=== PATIENT | male | born 1960 | race Caucasian/White ===

== ENCOUNTER 2020-10-13 20:32 | Emergency (ER) | payer MEDICAID ==
[~2020-10-13] VITALS: Ht 175.3 cm; Wt 94.8 kg
[2020-10-13 20:46] VITALS: BP 166/100
[2020-10-13 21:11] LABS: CLARITY,URINE CLEAR (Clear); COLOR,URINE YELLOW (Yellow); GLUCOSE, URINE 250 mg/dl (Neg); KETONES,URINE NEGATIVE (Neg); LEUKOCYTE ESTERASE ,URINE TRACE (Neg); NITRITES, URINE NEGATIVE (Neg); OCCULT BLOOD,URINE LARGE (Neg); PH,URINE 5.5 (4.8-8.0); PROTEIN,URINE NEGATIVE (Neg); UROBILINOGEN,URINE 0.2 E.U/dL (0.2-1.0)
[2020-10-13 21:17] LABS: BACTERIA,URINE FEW /HPF (Neg); SQUAMOUS EPITHELIAL CELL,UR FEW /LPF (FEW); UA COLLECTION TYPE CLN CATCH MIDSTREAM; WBC,URINE 0-4 /HPF (0-4)
[2020-10-13] MEDS ORDERED: LIDOcaine 2% 10ml TOPICAL JELLY (Urojet) MM ONE (22:10)
[2020-10-13 22:40] LABS: ALBUMIN 4.2 G/DL (3.4-5.0); ANION GAP 13 (8-16); BLOOD UREA NITROGEN 13 MG/DL (7-18); BUN/CREATININE RATIO 10.8 (5.4-32.0); CALCIUM 9.4 MG/DL (8.5-10.1); CHLORIDE 105 MMOL/L (99-107); GLUCOSE 143 MG/DL (70-104); POTASSIUM 3.5 MMOL/L (3.5-5.1); SODIUM 143 MMOL/L (135-145); TOTAL CARBON DIOXIDE 25.3 MMOL/L (24-32); eGFR 62 ML/MIN
[2020-10-13] MEDS ORDERED: FLO0.4C PO (23:08)
== END 2020-10-13 23:32 | disposition home or self-care (01) ==
LOC: ER 20:32
DX: R33.9 Retention of urine, unspecified (principal); N20.0 Calculus of kidney; E11.9 Type 2 diabetes mellitus without complications; Z87.442 Personal history of urinary calculi; Z72.89 Other problems related to lifestyle; Z98.890 Other specified postprocedural states
CPT/HCPCS: 36415; 51702; 76705; 80048; 81001; 87088; 99284

== ENCOUNTER 2020-10-14 13:28 | Emergency (ER) | payer MEDICAID ==
[~2020-10-14] VITALS: Ht 175.3 cm; Wt 98.1 kg
[~2020-10-14 13:28] MED LIST: FLO0.4C PO
[2020-10-14 14:45] VITALS: BP 173/101
[2020-10-14 16:42] LABS: ALBUMIN 4.3 G/DL (3.4-5.0); ANION GAP 13 (8-16); BLOOD UREA NITROGEN 14 MG/DL (7-18); BUN/CREATININE RATIO 11.4 (5.4-32.0); CALCIUM 9.6 MG/DL (8.5-10.1); CHLORIDE 104 MMOL/L (99-107); CREATININE 1.23 MG/DL (0.60-1.10); GLUCOSE 135 MG/DL (70-104); POTASSIUM 4.1 MMOL/L (3.5-5.1); SODIUM 144 MMOL/L (135-145); TOTAL CARBON DIOXIDE 27.3 MMOL/L (24-32); eGFR 60 ML/MIN
[2020-10-14 16:48] LABS: BASOPHILS % (AUTO) 0.5 % (0-1); EOSINOPHILS % (AUTO) 0.4 % (0-6); HEMATOCRIT 45.2 % (42.0-52.0); HEMOGLOBIN 15.2 g/dl (14.0-17.9); LYMPHOCYTES # (AUTO) 1.3 X10'3 (1.1-4.8); LYMPHOCYTES % (AUTO) 14.7 % (21-51); MEAN CORPUSCULAR HEMOGLOBIN 31.6 PG (27.0-31.0); MEAN CORPUSCULAR HGB CONC 33.5 g/dL (33.0-36.5); MEAN CORPUSCULAR VOLUME 94.4 FL (78-98); MEAN PLATELET VOLUME 9.9 FL (7.4-10.4); MONOCYTES # (AUTO) 0.5 X10'3 (0-0.9); MONOCYTES % (AUTO) 5.9 % (2-12); NEUTROPHILS # (AUTO) 7.1 X10'3 (1.8-7.7); NEUTROPHILS % (AUTO) 78.5 % (42-75); PLATELET COUNT 217 X10'3 (140-440); RED BLOOD COUNT 4.79 X10'6 (4.70-6.10); RED CELL DISTRIBUTION WIDTH 13.9 % (11.5-14.5)
== END 2020-10-14 20:13 | disposition home or self-care (01) ==
LOC: ER 13:29
DX: N21.0 Calculus in bladder (principal); R10.84 Generalized abdominal pain; E11.9 Type 2 diabetes mellitus without complications; Z87.442 Personal history of urinary calculi; Z72.89 Other problems related to lifestyle; Z98.890 Other specified postprocedural states; Z79.899 Other long term (current) drug therapy
CPT/HCPCS: 36415; 74176; 76705; 80048; 85025; 99285

== ENCOUNTER 2020-10-18 15:09 | Inpatient (IN) | payer MEDICAID ==
[~2020-10-18] VITALS: Ht 175.3 cm; Wt 97.3 kg
[2020-10-18] MEDS ORDERED: LIDOcaine 2% 10ml TOPICAL JELLY (Urojet) TP ONE (15:35)
[2020-10-18 17:32] LABS: BASOPHILS % (AUTO) 0.4 % (0-1); EOSINOPHILS # (AUTO) 0.1 X10'3 (0-0.9); HEMATOCRIT 43.3 % (42.0-52.0); HEMOGLOBIN 14.3 g/dl (14.0-17.9); LYMPHOCYTES # (AUTO) 1.2 X10'3 (1.1-4.8); LYMPHOCYTES % (AUTO) 13.3 % (21-51); MEAN CORPUSCULAR HEMOGLOBIN 31.2 PG (27.0-31.0); MEAN CORPUSCULAR HGB CONC 33.1 g/dL (33.0-36.5); MEAN CORPUSCULAR VOLUME 94.5 FL (78-98); MEAN PLATELET VOLUME 10.3 FL (7.4-10.4); MONOCYTES # (AUTO) 0.6 X10'3 (0-0.9); MONOCYTES % (AUTO) 7.4 % (2-12); NEUTROPHILS # (AUTO) 6.8 X10'3 (1.8-7.7); NEUTROPHILS % (AUTO) 77.9 % (42-75); PLATELET COUNT 174 X10'3 (140-440); RED BLOOD COUNT 4.58 X10'6 (4.70-6.10); RED CELL DISTRIBUTION WIDTH 13.7 % (11.5-14.5); WHITE BLOOD COUNT 8.7 X10'3 (4.5-11.0)
[2020-10-18 17:46] LABS: ALANINE AMINOTRANSFERASE 78 U/L (12-78); ALBUMIN 4.1 G/DL (3.4-5.0); ALBUMIN/GLOBULIN RATIO 1.1 (1.1-1.5); ALKALINE PHOSPHATASE 73 IU/L (46-116); ANION GAP 12 (8-16); ASPARTATE AMINO TRANSFERASE 64 U/L (10-37); BILIRUBIN,TOTAL 0.5 MG/DL (0.1-1.0); BLOOD UREA NITROGEN 13 MG/DL (7-18); BUN/CREATININE RATIO 11.9 (5.4-32.0); CALCIUM 9.4 MG/DL (8.5-10.1); CHLORIDE 104 MMOL/L (99-107); CREATININE 1.09 MG/DL (0.60-1.10); GLUCOSE 126 MG/DL (70-104); SODIUM 143 MMOL/L (135-145); TOTAL CARBON DIOXIDE 27.3 MMOL/L (24-32); TOTAL PROTEIN 7.9 G/DL (6.4-8.2); eGFR 69 ML/MIN
[2020-10-18] MEDS ORDERED: ibuprofen tablet 400 MG TABLET PO ONE (18:05)
[2020-10-18] MEDS ORDERED: acetaminophen 325mg tablet PO ONE (18:05)
[2020-10-18] MEDS ORDERED: LIDOcaine 2% 10ml TOPICAL JELLY (Urojet) MM ONE (20:45)
[2020-10-18] MEDS ORDERED: temazepam 15mg capsule PO PRN (21:00)
[2020-10-18] MEDS ORDERED: magnesium 2GM in 50ml NS 50 ML IV PRN (23:25)
[2020-10-18] MEDS ORDERED: potassium Cl 20 mEq SR tablet PO PRN ×2 (23:25)
[2020-10-18] MEDS ORDERED: dextrose 50%-water 50ml dispensing syringe IV PRN ×2 (23:25)
[2020-10-18] MEDS ORDERED: potassium Cl 40MEQ/1/2NS 520ml 520 ML IV PRN ×2 (23:25)
[2020-10-18] MEDS ORDERED: HYDROmorphone inj. 0.5 MG/0.5 ML DISP.SYRIN IV PRN (23:25)
[2020-10-18] MEDS ORDERED: magnesium Cl slow-release 64mg tablet PO PRN (23:25)
[2020-10-18] MEDS ORDERED: HYDROcodone/acetaminophen 10/325mg tab PO PRN (23:25)
[2020-10-18] MEDS ORDERED: ondansetron/PF 4mg/2ml inj IV PRN (23:25)
[2020-10-18] MEDS ORDERED: glucagon, human recombinant 1mg kit SUBCUT PRN (23:25)
[2020-10-18] MEDS ORDERED: MESSAGE TO PHARMACY PO ONE (23:25)
[2020-10-18] MEDS ORDERED: morphine 2 MG/ML inj. syringe IV PRN ×2 (23:25)
[2020-10-18] MEDS ORDERED: magnesium 4gm in 100ml NS 100 ML IV PRN (23:25)
[2020-10-18] MEDS ORDERED: HYDROcodone/acetaminophen 5mg/325mg tablet PO PRN (23:25)
[2020-10-18] MEDS ORDERED: dextrose ORAL solution 15 GM/59 ML bottle PO PRN ×2 (23:25)
[2020-10-18] MEDS ORDERED: acetaminophen 325mg tablet PO PRN ×2 (23:25)
[2020-10-18 23:40] LABS: HEMOGLOBIN A1C 6.8 % (4.5-6.2)
[2020-10-19] VITALS (16 sets, daily range): BP systolic 120–155; BP diastolic 54–88
[2020-10-19] MEDS: ciprofloxacin lact 400MG/200ML 200 ML IV SCH ×3 (01:02→21:42)
[2020-10-19] MEDS: normal saline 1000ml 1,000 ML IV SCH ×3 (01:02→16:40)
[2020-10-19] MEDS: lisinopril 10 MG tablet PO SCH ×2 (01:34→08:24)
[2020-10-19] MEDS: amLODIPine 5mg tablet PO SCH ×2 (01:34→08:25)
[2020-10-19] MEDS ORDERED: LORA10TA7 PO (07:52)
[2020-10-19] MEDS ORDERED: OLAN20TA3 PO (07:52)
[2020-10-19] MEDS ORDERED: ALLO100T PO (07:52)
[2020-10-19] MEDS ORDERED: HYDR25TA4 PO (07:52)
[2020-10-19] MEDS ORDERED: MELO-102 PO (07:52)
[2020-10-19] MEDS ORDERED: INSU100I31 SQ (07:52)
[2020-10-19] MEDS: K and/or MAG REPLACEMENT MC SCH ×2 (08:00→20:00)
[2020-10-19] MEDS: heparin, porcine 5000 units/ml vial SQ SCH ×2 (08:00→19:49)
[2020-10-19] MEDS: docusate sod 100mg capsule PO SCH ×2 (08:25→19:49)
[2020-10-19 08:32] LABS: BASOPHILS % (AUTO) 0.3 % (0-1); EOSINOPHILS # (AUTO) 0.2 X10'3 (0-0.9); EOSINOPHILS % (AUTO) 1.9 % (0-6); HEMATOCRIT 43.1 % (42.0-52.0); HEMOGLOBIN 14.3 g/dl (14.0-17.9); LYMPHOCYTES # (AUTO) 1.4 X10'3 (1.1-4.8); LYMPHOCYTES % (AUTO) 15.3 % (21-51); MEAN CORPUSCULAR HEMOGLOBIN 31.4 PG (27.0-31.0); MEAN CORPUSCULAR HGB CONC 33.1 g/dL (33.0-36.5); MEAN PLATELET VOLUME 10.2 FL (7.4-10.4); MONOCYTES # (AUTO) 0.9 X10'3 (0-0.9); MONOCYTES % (AUTO) 9.7 % (2-12); NEUTROPHILS # (AUTO) 6.8 X10'3 (1.8-7.7); NEUTROPHILS % (AUTO) 72.8 % (42-75); PLATELET COUNT 187 X10'3 (140-440); RED BLOOD COUNT 4.54 X10'6 (4.70-6.10); WHITE BLOOD COUNT 9.3 X10'3 (4.5-11.0)
[2020-10-19 08:42] LABS: PRE OP PARTIAL THROMB. TIME 27 SECONDS (22-32)
[2020-10-19 08:55] LABS: ALANINE AMINOTRANSFERASE 74 U/L (12-78); ALBUMIN 4.1 G/DL (3.4-5.0); ALBUMIN/GLOBULIN RATIO 1.1 (1.1-1.5); ALKALINE PHOSPHATASE 68 IU/L (46-116); ANION GAP 12 (8-16); ASPARTATE AMINO TRANSFERASE 58 U/L (10-37); BILIRUBIN,TOTAL 0.7 MG/DL (0.1-1.0); BLOOD UREA NITROGEN 11 MG/DL (7-18); BUN/CREATININE RATIO 9.7 (5.4-32.0); CALCIUM 9.3 MG/DL (8.5-10.1); CHLORIDE 106 MMOL/L (99-107); CREATININE 1.13 MG/DL (0.60-1.10); GLUCOSE 164 MG/DL (70-104); MAGNESIUM 1.7 MG/DL (1.5-2.4); POTASSIUM 3.6 MMOL/L (3.5-5.1); SODIUM 144 MMOL/L (135-145); TOTAL CARBON DIOXIDE 26.5 MMOL/L (24-32); eGFR 66 ML/MIN
--- NOTE | 2020-10-19 11:21 | NUR ---
Pt awaiting OR. VSS. Will continue to monitor.
[2020-10-19] MEDS ORDERED: iohexol 300 MG/1 ML 50ml polymer ONE (13:25)
[2020-10-19] MEDS ORDERED: morphine 4 MG/ML inj SYRINge IV PRN (13:50)
[2020-10-19] MEDS ORDERED: meperidine/PF 25mg/ml syringe IV PRN ×3 (13:50)
[2020-10-19] MEDS ORDERED: ringers solution, lacted 1,000 ML IV SCH (13:50)
[2020-10-19] MEDS ORDERED: ondansetron/PF 4mg/2ml inj IV PRN (13:50)
[2020-10-19] MEDS ORDERED: morphine 2 MG/ML inj. syringe IV PRN (13:50)
[2020-10-19] MEDS ORDERED: proCHLORperazine 10 MG/2 ml inj IV PRN (13:50)
[2020-10-19] MEDS ORDERED: midazolam 1 mg/ML 2ml injection ONE (14:03)
[2020-10-19] MEDS ORDERED: fentaNYL/PF 50MCG/1 ML 2ML syringe ONE (14:03)
[2020-10-19] MEDS ORDERED: propofol inj 20 ML IV ONE (14:15)
[2020-10-19] MEDS ORDERED: LIDOcaine 2% (20mg/ml) 5ml vial ONE (14:15)
[2020-10-19] MEDS ORDERED: ondansetron/PF 4mg/2ml inj ONE (14:16)
[2020-10-19] MEDS ORDERED: ceFAZolin 1000mg inj ONE ×2 (14:16)
[2020-10-19] MEDS ORDERED: dexamethasone sod phosphate 4mg/ml inj. ONE (14:16)
--- NOTE | 2020-10-19 14:41 | NUR ---
Received from OR via BED IN STABLE CONDITION , accompanied by Anesthesiologist and STRIPPING MACHINE OPERATOR report given by Anesthesimena. Addendum: 10/19/20 at 1450 by Nidhi Caceres RN Amended: Links added.
--- NOTE | 2020-10-19 15:11 | NUR ---
PATIENT TRANSFERRED FROM PACU TO PATIENTS ROOM VIA BED IN STABLE CONDITION WITH RN AND TRANSPORT. Addendum: 10/19/20 at 1541 by Nidhi Caceres RN Amended: Links added.
[2020-10-19] MEDS ORDERED: OLAN5TAB26 PO (15:39)
--- NOTE | 2020-10-19 15:45 | NUR ---
Received Report. Pt. in room from PACU A&O x4. No c/o discomfort. No s/s of bleeding noted. stable V/S
--- NOTE | 2020-10-19 18:21 | NUR ---
Patient in room [facility]. I have received report from SARAHI BEAVER and had the opportunity to ask questions and assume patient care.
--- NOTE | 2020-10-19 18:22 | NUR ---
Problems reprioritized. Patient report given, questions answered & plan of care reviewed with Prudencmarizol, RN. Pt doing well. voided 450ml of yellow clear urine without discomfort.
[2020-10-19] MEDS: lactobacillus rhamnosus 10,000 MMU CELLS/CAPSULE PO SCH (19:49)
[2020-10-19] MEDS: insulin Lispro (HumaLOG) vial - multi-dose SQ SCH (19:55)
--- NOTE | 2020-10-19 20:10 | NUR ---
PATIENT HAS NO FC. DIFFICULT INSERTION. PATIENT VOIDING WITH NO DIFFICULTY AFTER STONE REMOVAL. Addendum: 10/19/20 at 2010 by Doreen Maier RN Amended: Links added.
[2020-10-19] MEDS ORDERED: insulin glargine (Lantus) pen - multi-dose SQ SCH (21:00)
[2020-10-19] MEDS ORDERED: Melatonin 3mg tablet PO SCH (23:20)
[2020-10-20] MEDS: normal saline 1000ml 1,000 ML IV SCH (03:36)
[2020-10-20 04:22] VITALS: BP 126/72
--- NOTE | 2020-10-20 06:30 | NUR ---
Problems reprioritized. Patient report given, questions answered & plan of care reviewed with ROBBIE BEAVER.
[2020-10-20 07:19] VITALS: BP 119/80
[2020-10-20 07:27] LABS: BASOPHILS % (AUTO) 0.1 % (0-1); EOSINOPHILS % (AUTO) 0 % (0-6); HEMATOCRIT 40.3 % (42.0-52.0); HEMOGLOBIN 13.5 g/dl (14.0-17.9); LYMPHOCYTES # (AUTO) 0.7 X10'3 (1.1-4.8); LYMPHOCYTES % (AUTO) 6.9 % (21-51); MEAN CORPUSCULAR HEMOGLOBIN 31.8 PG (27.0-31.0); MEAN CORPUSCULAR HGB CONC 33.4 g/dL (33.0-36.5); MEAN CORPUSCULAR VOLUME 95.1 FL (78-98); MEAN PLATELET VOLUME 10.9 FL (7.4-10.4); MONOCYTES # (AUTO) 0.5 X10'3 (0-0.9); MONOCYTES % (AUTO) 4.4 % (2-12); NEUTROPHILS # (AUTO) 9.2 X10'3 (1.8-7.7); NEUTROPHILS % (AUTO) 88.6 % (42-75); PLATELET COUNT 195 X10'3 (140-440); RED BLOOD COUNT 4.23 X10'6 (4.70-6.10); RED CELL DISTRIBUTION WIDTH 13.6 % (11.5-14.5); WHITE BLOOD COUNT 10.4 X10'3 (4.5-11.0)
[2020-10-20 07:44] LABS: ALANINE AMINOTRANSFERASE 59 U/L (12-78); ALBUMIN 3.5 G/DL (3.4-5.0); ALBUMIN/GLOBULIN RATIO 0.9 (1.1-1.5); ALKALINE PHOSPHATASE 61 IU/L (46-116); ANION GAP 11 (8-16); ASPARTATE AMINO TRANSFERASE 38 U/L (10-37); BILIRUBIN,TOTAL 0.5 MG/DL (0.1-1.0); BLOOD UREA NITROGEN 15 MG/DL (7-18); BUN/CREATININE RATIO 12.9 (5.4-32.0); CALCIUM 8.5 MG/DL (8.5-10.1); CHLORIDE 108 MMOL/L (99-107); CREATININE 1.16 MG/DL (0.60-1.10); GLUCOSE 148 MG/DL (70-104); MAGNESIUM 1.7 MG/DL (1.5-2.4); POTASSIUM 3.8 MMOL/L (3.5-5.1); SODIUM 145 MMOL/L (135-145); TOTAL CARBON DIOXIDE 26.2 MMOL/L (24-32); TOTAL PROTEIN 7.3 G/DL (6.4-8.2); eGFR 64 ML/MIN
[2020-10-20] MEDS ORDERED: loratadine 10mg tablet PO SCH (08:00)
[2020-10-20] MEDS: K and/or MAG REPLACEMENT MC SCH (08:00)
[2020-10-20] MEDS ORDERED: OLANZAPINE 5 MG TABLET PO SCH (08:00)
[2020-10-20] MEDS ORDERED: Meloxicam 15 MG TAB PO SCH (08:00)
[2020-10-20] MEDS ORDERED: allopurinol 100mg tablet PO SCH (08:00)
[2020-10-20] MEDS ORDERED: insulin glargine (Lantus) pen - multi-dose SQ SCH (08:00)
[2020-10-20] MEDS ORDERED: tamsulosin 0.4mg capsule PO SCH (08:00)
[2020-10-20] MEDS ORDERED: HYDROchlorothiazide 25mg tablet PO SCH (08:00)
[2020-10-20] MEDS: heparin, porcine 5000 units/ml vial SQ SCH (08:00)
[2020-10-20 08:45] LABS: PLATELET ESTIMATE NORMAL; POLYCHROMASIA 1+
--- NOTE | 2020-10-20 09:30 | NUR ---
MEDICATIONS PULLED FROM [facility]. VELVET WEAVER INSISTS PRIMARY RN GO TO BREAK, ALTHOUGH UNSURE IF SHE CAN PROVIDE DIRECT PT. CARE AT THIS TIME.
[2020-10-20] MEDS: ciprofloxacin lact 400MG/200ML 200 ML IV SCH (09:47)
[2020-10-20] MEDS: lactobacillus rhamnosus 10,000 MMU CELLS/CAPSULE PO SCH (09:48)
[2020-10-20] MEDS: docusate sod 100mg capsule PO SCH (09:48)
[2020-10-20] MEDS: lisinopril 10 MG tablet PO SCH (09:50)
[2020-10-20] MEDS: amLODIPine 5mg tablet PO SCH (09:51)
[2020-10-20] MEDS: insulin Lispro (HumaLOG) vial - multi-dose SQ SCH ×2 (10:09→13:40)
--- NOTE | 2020-10-20 10:34 | NUR ---
Malnutrition consult: Pt reports 2-13 lb wt loss with decreased appetite per malnutrition risk screen with RN. Patient's current documented wt is stable with documented wt hx. Pt appears to have a good appetite, currently on a CHO controlled diet documented with 100% PO intake throughout LOS. No documented edema. Pt appears well developed well nourished per ED report. Pt currently lacks a minimum of two criteria for malnutrition. Patient's A1c is 6.8%, DM education not warranted at this time. Will continue to follow. Addendum: 10/20/20 at [address] Amended: Links added.
[2020-10-20 11:00] VITALS: BP 122/74
--- NOTE | 2020-10-20 15:57 | NUR ---
Reviewed discharge paperwork with pt. He had ample opportunities to ask questions. IV DC'd, cannula intact, no s/sx bleeding noted, pressure bandage applied. Pt. knows to f/u with his PCP, and Dr. Car- contact information provided. Education provided on kidney stone diet, hydration, and kidney stones- written and verbal. Pt. gather his belongings and was escorted downstairs to wait for his sister to take him home. No DME needed. Pt. was on RA.
== END 2020-10-20 14:10 | disposition home or self-care (01) | DRG 465 ==
LOC: ER 15:10 → ED HOLD 23:25 → SUR 3N 10-19 12:21
PROVIDERS: ADMIT Internal Medicine; ATTEND Family Medicine
PROC: 0TCB8ZZ Extirpation of Matter from Bladder, Via Natural or Artificial Opening Endoscopic (ICD-10-PCS; principal; 2020-10-19 13:54)
DX: N21.0 Calculus in bladder (principal); N17.9 Acute kidney failure, unspecified; N21.1 Calculus in urethra; N20.2 Calculus of kidney with calculus of ureter; E11.9 Type 2 diabetes mellitus without complications; F31.9 Bipolar disorder, unspecified; F41.9 Anxiety disorder, unspecified; I10 Essential (primary) hypertension; R74.01 Elevation of levels of liver transaminase levels; F39 Unspecified mood [affective] disorder; M10.9 Gout, unspecified; N13.8 Other obstructive and reflux uropathy; R33.9 Retention of urine, unspecified; Z87.442 Personal history of urinary calculi; Z20.822 Contact with and (suspected) exposure to COVID-19
CPT/HCPCS: 36415; 80053; 82948; 83036; 83605; 83735; 85008; 85025; 85610; 85730; 87040; 87081; 87635; 93005; 96374; 96375; 99285; A4618; G0378; J0690; J0744; J1100; J1644; J1815; J2001; J2250; J2270; J2405; J2704; J3010; J7030; Q9967